=== PATIENT | female | born 1975 ===

== ENCOUNTER 2019-06-24 05:26 | Day surgery (SDC) | payer OTHER ==
[~2019-06-24] VITALS: Ht 152.4 cm; Wt 113.4 kg
[~2019-06-24 05:26] MED LIST: GRALISE600 MG PO; NABUMETONE750 MG PO
[2019-06-25] MEDS ORDERED: COLACE100 MG PO (09:49)
[2019-06-25] MEDS ORDERED: ULTRAM50 MG PO (09:49)
== END 2019-06-25 08:00 | disposition home or self-care (01) ==
LOC: CIR.AMB 05:26 → SURH 18:35 → CIR.AMB 06-25 08:00 → SURH 06-25 14:02
DX: N83.11 Corpus luteum cyst of right ovary (principal); N70.11 Chronic salpingitis